=== PATIENT | male | born 1940 | race Caucasian/White ===

== ENCOUNTER 2016-07-08 13:20 | Outpatient (CLI) | payer MEDICARE, OTHER ==
[2016-07-08 13:43] LABS: Hemoglobin A1c 6.6 % (4.0-6.0)
== END 2016-07-08 13:21 | disposition home or self-care (01) ==
LOC: MADLAB 13:20
PROVIDERS: ATTEND Thoracic Surgery (Cardiothoracic Vascular Surgery)
DX: E11.9 Type 2 diabetes mellitus without complications (principal)
CPT/HCPCS: 36415; 83036